=== PATIENT | male | born 1990 | race Caucasian/White ===

== ENCOUNTER 2017-07-15 14:15 | Emergency (ER) | payer OTHER ==
--- NOTE | 2017-07-15 15:24 | EDM.PDOC ---
ED HPI GENERAL MEDICAL PROBLEM - General Chief Complaint: Chest Pain Stated Complaint: CHEST PAIN/ALL OVER TINGLE Time Seen by Provider: 07/15/17 14:55 Source of Information: Reports: Patient, Family History Limitations: Reports: No Limitations - History of Present Illness INITIAL COMMENTS - FREE TEXT/NARRATIVE: Jean Marie presents today with complaints of worsening left chest pain. He reports he went to a clinic in the [facility] on TuesdayJuly 09 for chest pain. He states he was sent to the emergency room, had lab and x-ray without any definitive results. 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 Jean Marie states today he took indomethacin for the first time and he had slow onset of pressure to the left chest followed by sharp pain with SOB, Light headedness and trouble concentrating at that time. He states he slowly felt better. He denies fever, chills, nausea, vomiting, change in bowel/bladder function, exposure to insect/ticks or exposure to sexually transmitted diseases. Left Chest Pain Score (Numeric/FACES): 0 - Related Data Allergies Allergy/AdvReac Type Severity Reaction Status Date / Time No Known Allergies Allergy Verified 07/15/17 14:48 Home Meds: Home Meds Indomethacin 50 mg PO TID 07/15/17 [History] Past Medical History - Past Health History Medical/Surgical History: Denies Medical/Surgical History Social & Family History - Tobacco Use Smoking Status *Q: Never Smoker Second Hand Smoke Exposure: No - Caffeine Use Caffeine Use: Reports: None - Recreational Drug Use Recreational Drug Use: No ED ROS GENERAL - Review of Systems Review Of Systems: See Below Constitutional: Reports: Diaphoresis. Denies: Fever, Chills, Malaise, Weakness , Night Sweats HEENT: Reports: No Symptoms Respiratory: Reports: Other (He reports SOB with earlier episode of pain. He denies SOB at this time. ). Denies: Wheezing, Cough, Sputum, Hemoptysis Cardiovascular: Reports: Chest Pain, Lightheadedness, Palpitations. Denies: Dyspnea on Exertion, Edema, PND, Syncope Endocrine: Reports: No Symptoms GI/Abdominal: Denies: Abdominal Pain, Constipation, Diarrhea, Nausea, Vomiting : Reports: No Symptoms Musculoskeletal: Denies: Shoulder Pain, Joint Pain, Joint Swelling, Muscle Pain , Muscle Stiffness Skin: Denies: Pallor, Diaphoresis, Bruising, Pruritis, Rash, Erythema, Wound Neurological: Reports: No Symptoms Psychiatric: Reports: No Symptoms Hematologic/Lymphatic: Reports: No Symptoms Immunologic: Reports: No Symptoms ED EXAM, GENERAL - Physical Exam Exam: See Below Free Text/Narrative:: Jean Marie is an alert and oriented 27 year old male presenting with left sided chest pain, onset after taking indomethacin. Exam Limited By: No Limitations General Appearance: Alert, WD/WN, No Apparent Distress Eye Exam: Bilateral Eye: EOMI, Normal Inspection, PERRL Ears: Normal External Exam, Normal Canal, Hearing Grossly Normal, Normal TMs Ear Exam: Bilateral Ear: Auricle Normal, Canal Normal, TM normal Nose: Normal Inspection, Normal Mucosa, Nasal Drainage Throat/Mouth: Normal Inspection, Normal Lips, Normal Teeth, Normal Gums, Normal Oropharynx, Normal Voice, No Airway Compromise Head: Atraumatic, Normocephalic Neck: Normal Inspection, Supple, Non-Tender, Full Range of Motion. No: Lymphadenopathy (R), Lymphadenopathy (L) Respiratory/Chest: No Respiratory Distress, Lungs Clear, Normal Breath Sounds, No Accessory Muscle Use, Chest Non-Tender Cardiovascular: Normal Peripheral Pulses, Regular Rate, Rhythm, No Edema, No Gallop, No JVD, No Murmur, No Rub Peripheral Pulses: 2+: Radial (L), Radial (R), Dorsalis Pedis (L), Dorsalis Pedis (R) GI/Abdominal: Normal Bowel Sounds, Soft, Non-Tender, No Organomegaly, No Distention, No Abnormal Bruit, No Mass, Pelvis Stable Back Exam: Normal Inspection, Full Range of Motion. No: CVA Tenderness (R), CVA Tenderness (L) Extremities: Normal Inspection, Normal Range of Motion, Non-Tender, No Pedal Edema, Normal Capillary Refill Neurological: Alert, Oriented, CN II-XII Intact, Normal Cognition, Normal Gait, No Motor/Sensory Deficits Psychiatric: Normal Affect, Normal Mood Skin Exam: Warm, Dry, Intact, No Rash, Other (Noted flushing of face) Lymphatic: No Adenopathy EKG INTERPRETATION EKG Date: 07/15/17 Rhythm: NSR [place]: Other (Border line right axis deviation) P-Wave: Present QRS: Normal ST-T: Other (Peaked T's in V2, V4, V5, V6) QT: Normal Comparison: Other: (Noted change from EKG outside this facility - missing lead V2, shows flipped T waves to V3 most likely due to inaccurate lead placement of V1 and V3.) Course - Vital Signs Last Recorded V/S: Last Vital Signs Temp 36.2 C 07/15/17 14:44 Pulse 64 07/15/17 14:44 Resp 12 07/15/17 14:44 BP 133/73 07/15/17 14:44 Pulse Ox 98 07/15/17 14:44 - Orders/Labs/Meds Orders: Active Orders 24 hr Category Date Time Status EKG Documentation Completion [RC] ASDIRECTED Care 07/15/17 14:57 Active EKG Documentation Completion [RC] ASDIRECTED Care 07/15/17 16:58 Active BABESIA MICROTI ANTIBODY PANEL Stat Lab 07/15/17 16:10 Received E. CHAFFEENSIS-HME (MONOCYTIC) Stat Lab 07/15/17 16:10 Received EKG 12 Lead [EK] Routine Ther 07/15/17 14:57 Ordered EKG 12 Lead [EK] Routine Ther 07/15/17 16:57 Ordered Labs: Laboratory Tests 07/15/17 07/15/17 07/15/17 Range/Units 15:29 15:29 15:29 WBC 10.5 (4.5-11.0) K/uL RBC 5.24 (4.30-5.90) M/uL Hgb 15.7 H (12.0-15.0) g/dL Hct 44.7 (40.0-54.0) % MCV 85 (80-98) fL MCH 30 (27-31) pg MCHC 35 (32-36) % Plt Count 207 (150-400) K/uL Neut % (Auto) 84 H (36-66) % Lymph % (Auto) 10 L (24-44) % [place] % (Auto) 6 (2-6) % Eos % (Auto) 0 L (2-4) % Baso % (Auto) 0 (0-1) % Sodium 140 (140-148) mmol/L Potassium 4.0 (3.6-5.2) mmol/L Chloride 104 (100-108) mmol/L Carbon Dioxide 29 (21-32) mmol/L Anion Gap 6.8 (5.0-14.0) mmol/L BUN 11 (7-18) mg/dL Creatinine 1.0 (0.8-1.3) mg/dL Est Cr Clr Drug Dosing 112.30 mL/min Estimated GFR (MDRD) > 60 (>60) Glucose 116 H (74-106) mg/dL Calcium 8.9 (8.5-10.1) mg/dL Troponin I < 0.017 (0.000-0.056) ng/mL TSH, Ultra Sensitive 1.308 (0.358-3.740) uIU/mL - Re-Assessments/Exams Free Text/Narrative Re-Assessment/Exam: 07/15/17 15:42 Previous EKG from 07/09/17 reviewed and compared to todays, noted fipped Ts in V3 most likely due to inaccurate lead placement. No other significant changes. Chest x-ray from 07/09/17 report showed not acute findings. 07/09/17 lab work: WBC 7.3 Hgb 16.5 Neut 69.9 K 4.3 Na 142 07/15/17 21:21 Free Text/Narrative Re-Assessment/Exam: 07/15/17 16:58 EKGs, lab work reviewed with Dr. Hernandez, he agrees with plan. Patient will be discharged to home, continue indomethacin, add omeprazole 20mg PO twice per day. Follow up with cardiology and primary provider. 07/15/17 17:16 Repeat EKG shows no significant changes, leads appropriate. Departure - Departure Time of Disposition: 17:16 Disposition: Home, Self-Care 01 Condition: Good Clinical Impression: Pericarditis Instructions: Pericarditis Referrals: PCP,None [Primary Care Provider] - Forms: ED Department Discharge Additional Instructions: You have been evaluated and treated in the emergency room for pericarditis. Your lab work, telemetry and EKGs were normal today. It would be best for you to take indomethacin as prescribed. Add use of omeprazole 20mg. Take two tablets tonight, then take one tablet in the morning and in the evening while taking indomethacin. Eat more of a bland diet. Follow up with cardiology for echo and stress echo as they suggested. Follow up with a primary provider in the next 3 to 7 days. Report to the nearest emergency room for worsening, issues or concerns. - My Orders Last 24 Hours: My Active Orders 07/15/17 14:57 EKG Documentation Completion [RC] ASDIRECTED EKG 12 Lead [EK] Routine 07/15/17 16:10 BABESIA MICROTI ANTIBODY PANEL Stat E. CHAFFEENSIS-HME (MONOCYTIC) Stat 07/15/17 16:57 EKG 12 Lead [EK] Routine 07/15/17 16:58 EKG Documentation Completion [RC] ASDIRECTED - Assessment/Plan Last 24 Hours: My Active Orders 07/15/17 14:57 EKG Documentation Completion [RC] ASDIRECTED EKG 12 Lead [EK] Routine 07/15/17 16:10 BABESIA MICROTI ANTIBODY PANEL Stat E. CHAFFEENSIS-HME (MONOCYTIC) Stat 07/15/17 16:57 EKG 12 Lead [EK] Routine 07/15/17 16:58 EKG Documentation Completion [RC] ASDIRECTED Assessment:: pericarditis Plan: Patiemt evaluated and treated in the emergency room for pericarditis. Lab work, telemetry and EKGs were normal today. It would be best for patient to take indomethacin as prescribed. Add use of omeprazole 20mg. Take two tablets tonight, then take one tablet in the morning and in the evening while taking indomethacin. Eat more of a bland diet. Follow up with cardiology for echo and stress echo as they suggested. Follow up with a primary provider in the next 3 to 7 days. Report to the nearest emergency room for worsening, issues or concerns.
== END 2017-07-15 17:30 | disposition home or self-care (01) ==
LOC: JP.ED 14:15
DX: I31.9 Disease of pericardium, unspecified (principal)
CPT/HCPCS: 36415; 80048; 84443; 84484; 85025; 86666; 86666-59; 86753; 93005; 99285-25